=== PATIENT | female | born 1990 | race Caucasian/White ===

== ENCOUNTER 2016-08-31 15:41 | Inpatient (IN) | payer BC, MEDICAID ==
[~2016-08-31] VITALS: Ht 165.1 cm; Wt 119.5 kg
[~2016-08-31 15:41] MED LIST: CEFTIN 250250 MG/TAB PO; CEPHALEXIN500 M1 PO; CIPRO 500MG TA500 MG PO; DEPO-PROVER400 MG/ML IM; FLAGYL500 MG PO; FLEXERIL 1010 MG/TAB PO; GUAIFENESI100 MG/51 PO; MACROBID 1100 MG/CAP PO; MOTRIN 800800 MG/TAB PO; NO HOME MEDICATIONS; NORCO 325 MG-51 TAB PO; PERCOCET 325 MG1 TA2 PO; PREDNISONE10 MG PO; PRENATAL VITAMI1 TAB PO; PRENATAL1 TA1 PO; TYLENOL #3 301 UDTAB PO; TYLENOL/CODEINE1 ML PO; ZOFRAN 4MG T4 MG/TAB PO
[2016-09-28] VITALS (27 sets, daily range): BP systolic 103–136; BP diastolic 51–76; PULSE 67–125; TEMP 98–98.5
[2016-09-28] MEDS ORDERED: NATURAL IRON65 MG PO (07:33)
[2016-09-28] MEDS ORDERED: VALTREX 50500 MG/TAB PO (07:34)
[2016-09-28 08:39] LABS: BASO % 0.3 % (0.0-2.0); EOS # 0.3 (0.0-0.7); EOS % 2.4 % (0-4.0); GRAN # 6.2 (1.4-6.5); GRAN % 60.7 % (42.2-75.2); LYMPH # 2.7 (1.2-3.4); LYMPH % 26.6 % (20.0-51.0); MEAN CELL VOLUME 81 fl (80.0-100.0); MEAN CORPUSCULAR HGB CONC 32 g/dl (33.0-37.0); MEAN PLATELET VOLUME 10.1 fl (7.4-10.4); MONO % 9.3 % (1.7-9.3); PLATELET COUNT 320 K/mm3 (130-400); RED BLOOD COUNT 3.79 M/mm3 (4.10-5.30); REDCELL DISTRIBUTION WIDTH-CV 14.6 % (11.5-14.5); WHITE BLOOD COUNT 10.3 K/mm3 (4.8-10.8)
[2016-09-28 08:41] LABS: HEMATOCRIT 30.5 % (37.0-47.0); HEMOGLOBIN 9.8 g/dl (12.5-16.0); MEAN CORPUSCULAR HEMOGLOBIN 26 pg (27.0-31.0)
[2016-09-28 09:03] LABS: AMPHETAMINE URINE NEGATIVE; BARBITURATES URINE NEGATIVE; BENZODIAZEPINES URINE NEGATIVE; BUPRENORPHINE URINE NEGATIVE; METHADONE URINE NEGATIVE; OPIATES URINE NEGATIVE; OXYCODONE URINE NEGATIVE; PHENCYCLIDINE URINE NEGATIVE; PROPOXYPHENE URINE NEGATIVE; THC CANNABINOIDS URINE NEGATIVE
[2016-09-29 00:13] VITALS: BP 114/72; PULSE 98; TEMP 98
[2016-09-29 04:26] VITALS: BP 118/71; PULSE 88; TEMP 97.3
[2016-09-29 07:00] VITALS: BP 113/68; PULSE 83; TEMP 97.7
[2016-09-29] MEDS ORDERED: IBU800 M1 PO (09:30)
[2016-09-29] MEDS ORDERED: PERCOCET 325 MG1 TA2 PO (09:30)
[2016-09-29 16:30] VITALS: BP 116/62; PULSE 84
[2016-09-29 20:00] VITALS: BP 121/78; PULSE 93; TEMP 97.8
[2016-09-30 07:40] VITALS: BP 114/57; PULSE 75; TEMP 97.9
== END 2016-09-30 12:20 | disposition home or self-care (01) | DRG 775 ==
LOC: LDR 09-28 06:10 → OB 09-28 16:12 → EDSTATUS 10-05 06:09 → LDRO 10-05 15:41
PROVIDERS: Obstetrics & Gynecology
PROC: 10E0XZZ Delivery of Products of Conception, External Approach (ICD-10-PCS; principal; 2016-09-28)
PROC: 3E033VJ Introduction of Other Hormone into Peripheral Vein, Percutaneous Approach (ICD-10-PCS; 2016-09-28)
DX: O75.89 Other specified complications of labor and delivery (principal); Z3A.39 39 weeks gestation of pregnancy; Z37.0 Single live birth
CPT/HCPCS: J2590; J7120

== ENCOUNTER 2016-10-20 18:14 | Emergency (ER) | payer BC, MEDICAID ==
[~2016-10-20] VITALS: Ht 165.1 cm; Wt 104.5 kg
[~2016-10-20 18:14] MED LIST changes: +IBU800 M1 PO; +NATURAL IRON65 MG PO; +VALTREX 50500 MG/TAB PO
[2016-10-20 18:22] VITALS: BP 133/77; TEMP 97.6
[2016-10-20] MEDS ORDERED: AMOXICILLIN 50500 MG PO (19:34)
[2016-10-20 19:52] VITALS: PULSE 70
== END 2016-10-20 19:55 | disposition home or self-care (01) ==
LOC: COL.ER 18:14
DX: H66.91 Otitis media, unspecified, right ear (principal)

== ENCOUNTER 2017-09-07 15:04 | Emergency (ER) | payer SELFPAY ==
[~2017-09-07] VITALS: Ht 162.6 cm; Wt 110.5 kg
[~2017-09-07 15:04] MED LIST changes: +AMOXICILLIN 50500 MG PO
[2017-09-07 15:07] VITALS: BP 127/62; PULSE 84; TEMP 98.2
== END 2017-09-07 17:58 | disposition left against medical advice (07) ==
LOC: COL.ER 15:04
DX: A74.9 Chlamydial infection, unspecified (principal)

== ENCOUNTER 2018-01-09 14:05 | Emergency (ER) | payer SELFPAY ==
[~2018-01-09] VITALS: Ht 165.1 cm; Wt 113.6 kg
[2018-01-09 14:07] VITALS: TEMP 98.8
[2018-01-09 14:37] LABS: COLLECTION METHOD CLEAN CATCH
[2018-01-09 14:46] LABS: MUCOUS Present /lpf; PH 5 (5-8); SQUAMOUS EPITHELIAL 0-2 /hpf; URINE APPEARANCE Clear; URINE BACTERIA Rare /hpf; URINE BILIRUBIN Negative (NEGATIVE); URINE BLOOD Negative (NEGATIVE); URINE COLOR Yellow; URINE GLUCOSE Negative (NEGATIVE); URINE KETONE Negative (NEGATIVE); URINE LEUKOCYTE ESTERASE Trace (NEGATIVE); URINE NITRATE Negative (NEGATIVE); URINE PROTEIN(semi-quant) Negative (NEGATIVE); URINE RBC 0-2 /hpf; URINE UROBILINOGEN Negative (NEGATIVE)
[2018-01-09 14:48] LABS: BASO # 0.1 (0.0-0.2); BASO % 0.5 % (0.0-2.0); EOS # 0.2 (0.0-0.7); EOS % 2.2 % (0-4.0); GRAN # 6.2 (1.4-6.5); GRAN % 56.3 % (42.2-75.2); HEMATOCRIT 38.8 % (37.0-47.0); HEMOGLOBIN 12.8 g/dl (12.5-16.0); LYMPH # 3.8 (1.2-3.4); MEAN CELL VOLUME 82 fl (80.0-100.0); MEAN CORPUSCULAR HEMOGLOBIN 27 pg (27.0-31.0); MEAN CORPUSCULAR HGB CONC 33 g/dl (33.0-37.0); MONO # 0.6 (0.1-0.6); MONO % 5.8 % (1.7-9.3); PLATELET COUNT 291 K/mm3 (130-400); RED BLOOD COUNT 4.76 M/mm3 (4.10-5.30); REDCELL DISTRIBUTION WIDTH-CV 14.7 % (11.5-14.5)
[2018-01-09 15:25] LABS: ALANINE AMINOTRANSFERASE 33 U/L (9-52); ALBUMIN 4.2 gm/dL (3.5-5.0); ALKALINE PHOSPHATASE 86 U/L (50-136); ANION GAP 13 mmol/L (7-16); AST,SGOT 19 U/L (15-37); BILIRUBIN,TOTAL 0.4 mg/dL (0.0-1.0); BLOOD UREA NITROGEN 16 mg/dL (7-17); CALCIUM 9.3 mg/dL (8.4-10.2); CARBON DIOXIDE 20 mmol/L (22-30); CHLORIDE 108 mmol/L (98-107); CREATININE, serum 0.87 mg/dL (0.52-1.25); GLUCOSE 102 mg/dL (74-106); POTASSIUM 3.8 mmol/L (3.4-5.0); SODIUM 141 mmol/L (137-145); TOTAL PROTEIN 7.8 gm/dL (6.4-8.2)
[2018-01-09 15:26] LABS: C-REACTIVE PROTEIN < 0.5 mg/dL (0.0-0.9)
[2018-01-09] MEDS ORDERED: MOTRIN 800800 MG/TAB PO (15:45)
[2018-01-09 15:55] VITALS: BP 135/72; PULSE 80
== END 2018-01-09 16:04 | disposition home or self-care (01) ==
LOC: COL.ER 14:05
PROVIDERS: Emergency Medicine; Physician Assistant
DX: R10.31 Right lower quadrant pain (principal); Z87.891 Personal history of nicotine dependence; Z98.890 Other specified postprocedural states
CPT/HCPCS: J1885; J2405

== ENCOUNTER 2018-03-01 20:38 | Emergency (ER) | payer SELFPAY ==
[~2018-03-01] VITALS: Ht 165.1 cm; Wt 99.5 kg
[2018-03-01 20:42] VITALS: BP 112/67; TEMP 98
[2018-03-01 21:03] LABS: COLLECTION METHOD CLEAN CATCH
[2018-03-01 21:12] LABS: MUCOUS Present /lpf; PH 5 (5-8); URINE APPEARANCE Cloudy; URINE BACTERIA Rare /hpf; URINE BILIRUBIN Negative (NEGATIVE); URINE BLOOD 2+ (NEGATIVE); URINE COLOR Yellow; URINE GLUCOSE Negative (NEGATIVE); URINE KETONE Negative (NEGATIVE); URINE LEUKOCYTE ESTERASE 2+ (NEGATIVE); URINE NITRATE Negative (NEGATIVE); URINE PROTEIN(semi-quant) 1+ (NEGATIVE); URINE RBC 20-50 /hpf; URINE UROBILINOGEN Negative (NEGATIVE)
[2018-03-01 21:32] LABS: BASO # 0.1 (0.0-0.2); BASO % 0.3 % (0.0-2.0); EOS # 0.1 (0.0-0.7); EOS % 0.5 % (0-4.0); GRAN # 12.9 (1.4-6.5); GRAN % 80.3 % (42.2-75.2); HEMATOCRIT 37.6 % (37.0-47.0); HEMOGLOBIN 12.4 g/dl (12.5-16.0); LYMPH # 2.2 (1.2-3.4); LYMPH % 13.5 % (20.0-51.0); MEAN CELL VOLUME 82 fl (80.0-100.0); MEAN CORPUSCULAR HEMOGLOBIN 27 pg (27.0-31.0); MEAN CORPUSCULAR HGB CONC 33 g/dl (33.0-37.0); MEAN PLATELET VOLUME 9.4 fl (7.4-10.4); MONO # 0.8 (0.1-0.6); PLATELET COUNT 315 K/mm3 (130-400); REDCELL DISTRIBUTION WIDTH-CV 14.3 % (11.5-14.5)
[2018-03-01 21:42] LABS: ALBUMIN 4.2 gm/dL (3.5-5.0); BILIRUBIN,TOTAL 0.3 mg/dL (0.0-1.0); CALCIUM 9.2 mg/dL (8.4-10.2); CREATININE, serum 0.85 mg/dL (0.52-1.25); POTASSIUM 3.6 mmol/L (3.4-5.0); TOTAL PROTEIN 7.3 gm/dL (6.4-8.2)
[2018-03-01] MEDS ORDERED: OMNICEF 300MG300 MG PO (21:50)
[2018-03-01] MEDS ORDERED: NORCO 325 MG-51 TAB PO (21:50)
[2018-03-01 22:35] VITALS: PULSE 80
== END 2018-03-01 22:38 | disposition home or self-care (01) ==
LOC: COL.ER 20:38
PROVIDERS: Nurse Practitioner
DX: N12 Tubulo-interstitial nephritis, not specified as acute or chronic (principal); Z87.891 Personal history of nicotine dependence
CPT/HCPCS: J0696; J1885; J7030

== ENCOUNTER → 2022-11-14 | Outpatient (CLI) | payer OTHER ==
[~2022-11-14] MED LIST changes: +AMOXICILLIN 8751 TAB PO; +OMNICEF 300MG300 MG PO
== END ==
LOC: MC.RAD 08:22
DX: N60.01 Solitary cyst of right breast (principal); N64.52 Nipple discharge